=== PATIENT | female | born 1955 | race Caucasian/White ===

== ENCOUNTER 2020-08-15 09:31 | Day surgery (SDC) | payer MEDICARE ==
[~2020-08-15] VITALS: Ht 160 cm; Wt 66.0 kg
[2020-08-15] MEDS ORDERED: SODIUM CHLORIDE 0.9% 1,000 ML IV SCH ×2 (09:58→12:54)
[2020-08-15] MEDS ORDERED: ASPI81TA45 PO (10:09)
[2020-08-15] MEDS ORDERED: OLME40TA12 PO (10:09)
[2020-08-15] MEDS ORDERED: GLIM2TAB7 PO (10:09)
[2020-08-15 10:24] VITALS: BP 180/95
[2020-08-15 10:53] LABS: BASOPHILS # (AUTO) 0.03 x10^3/uL (0-0.1); BASOPHILS % (AUTO) 0 % (0-1); EOSINOPHILS # (AUTO) 0.18 x10^3/uL (0-0.4); EOSINOPHILS % (AUTO) 2 % (1-7); LYMPHOCYTES # (AUTO) 2.62 x10^3/uL (1-3.4); LYMPHOCYTES % (AUTO) 29 % (22-44); MD NO; MEAN CORPUSCULAR HGB CONC 33.8 g/dL (32.4-35.8); MEAN CORPUSCULAR VOLUME 94.8 fL (80-100); MEAN PLATELET VOLUME 11.7 fL (7.4-10.4); MONOCYTES # (AUTO) 0.63 x10^3/uL (0.2-0.8); MONOCYTES % (AUTO) 7 % (2-9); NEUTROPHILS % (AUTO) 62 % (42-75); PLATELET COUNT 229 x10^3/uL (130-400); RED BLOOD COUNT 4.86 x10^6/uL (3.82-5.3); RED CELL DISTRIBUTION WIDTH 13.3 % (9.6-15.2)
[2020-08-15 10:55] LABS: ANION GAP 7 mmol/L (5-15); CALCIUM 8.5 mg/dL (8.5-10.1); CHLORIDE 109 mmol/L (98-107); CREATININE 0.64 mg/dL (0.55-1.02)
[2020-08-15] MEDS ORDERED: MIDAZOLAM 1 MG/ML, 2ML ONE ×2 (11:11→12:34)
[2020-08-15] MEDS ORDERED: FENTANYL PF 100 MCG/2ML ONE (11:11)
[2020-08-15] MEDS ORDERED: VERAPAMIL 2.5 MG/ML, 2ML ONE (11:12)
[2020-08-15] MEDS ORDERED: LIDOCAINE-MPF 1%, 5ML ONE (11:12)
[2020-08-15] MEDS ORDERED: HEPARIN 1,000 UNITS/ML, 10ML ONE (11:12)
== END 2020-08-15 14:40 | disposition home or self-care (01) ==
LOC: CACL 09:31
PROVIDERS: ATTEND Internal Medicine Cardiovascular Disease
DX: R94.39 Abnormal result of other cardiovascular function study (principal); I10 Essential (primary) hypertension; E11.9 Type 2 diabetes mellitus without complications; Z79.82 Long term (current) use of aspirin; Z79.84 Long term (current) use of oral hypoglycemic drugs; Z79.899 Other long term (current) drug therapy; Z88.8 Allergy status to other drugs, medicaments and biological substances; Z95.2 Presence of prosthetic heart valve; Z80.3 Family history of malignant neoplasm of breast
CPT/HCPCS: 36415; 80048; 85025; 93458; 99156; C1894; J1644; J2250; J3010; Q9967